=== PATIENT | male | born 1975 | race Caucasian/White ===

== ENCOUNTER 2024-05-22 08:48 | Outpatient (REF) | payer OTHER, SELFPAY ==
--- NOTE | ~2024-05-22 | XR_ITS ---
EXAMINATION: XR HIP, RIGHT CLINICAL INFORMATION: M25.551 - Pain in right hip COMPARISON: None available. TECHNIQUE: Two views of the right hip. AP pelvis. FINDINGS: Right hip: Subchondral cyst formation sclerosis of the articular surface and volume loss at the right coxofemoral joint. Loss of the coxofemoral joint space. No acute cortical disruption or malalignment. No lytic or blastic lesions. Left hip: Volume loss of the left femoral head. Sclerosis and the articular surface of the left acetabulum. Preservation of the joint spaces. No acute cortical disruption or malalignment. Bony pelvis: Sclerosis and the sacroiliac joints. No acute cortical disruption. No lytic or blastic lesions. XR/XR hip RT min 2V IMPRESSION: Moderate to severe osteoarthrosis, right coxofemoral joint. Mild to moderate osteoarthrosis, left coxofemoral joint. Electronically signed by: Jacob Denton MD 05/24/2024 07:51 AM EDT
== END 2024-05-22 08:49 | disposition home or self-care (01) ==
LOC: HO.HOSX 08:48
PROVIDERS: Visit Provider Physician Assistant
DX: M25.551 Pain in right hip (principal)
CPT/HCPCS: 73502

== ENCOUNTER 2024-05-22 14:57 | Outpatient (AMB) | payer OTHER, SELFPAY ==
--- NOTE | 2024-05-22 15:26 | A.OFFVIS_ITS ---
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 Patient was seen by his PCP who referred patient to orthopedics for increased pain of right hip. Patient reports ongoing pain for 4 years. Patient notices that his pain is on the groin area. He informs me that he is unable to tie his shoe since it causes him a lot of pain. He describes his pain as a constant ache that gets worse with activity. Hx of right knee surgery. 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 Previously, he underwent right knee surgery involving meniscus and cartilage yarsanism. His right hip now shows severe osteoarthritic changes with substantial osteophyte formation and joint space narrowing. The left hip demonstrates early-stage arthritis, further complicated by abnormal joint structure. The patient's musculoskeletal history includes multiple surgical interventions, such as right knee repair and an ankle fracture, both contributing to ongoing orthopedic challenges. The patient's long-standing use of Suboxone is for pain management, initiated after historical challenges with opioid medications for back pain. This history is compounded by his employment demands, explaining the advancing hip symptoms. 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 Significant limitations with range of motion of the right hip and internal and external rotation when compared to contralateral side. Results Reviewed Results Reviewed: X-rays of the right hip obtained in the office and reviewed by me show severe osteoarthritic changes with severe joint collapse. Assessment & Plan Assessment & Plan (1) Osteoarthritis of right hip: Code(s): M16.11 - Unilateral primary osteoarthritis, right hip Category: Medical Plan I discussed with the patient the severe osteoarthritic changes in the right hip, explaining that hip replacement offers the best resolution for marked pain relief and functional yarsanism. The surgical process was reviewed, including incision placement, removal of arthritic bone, and prosthesis insertion, which is a technically straightforward but complex procedure. We explored potential intraoperative and postoperative risks, with emphasis on a structured rehabilitation program. The patient consented to delay surgery until winter to accommodate occupational demands. I mentioned the necessity for cardiovascular evaluations through EKGs and labs preoperatively. Pain management strategy with ongoing Suboxone use was reviewed, ensuring compatibility with surgical pain protocols, and the importance of open communication regarding analgesic requirements was emphasized. He will follow up with Dr. Rivas to discuss maurizio spann. Orders: Orders XR hip RT min 2V 05/22/24 M25.551 - Pain in right hip Coding Level of Care Code New Pt Level 4 (42087) Complex EM visit Add On G2211 Diagnoses Osteoarthritis of right hip M16.11
[2024-05-22 15:29] VITALS: BMI 32.1
== END 2024-05-22 16:08 | disposition home or self-care (01) ==
LOC: HO.HOS 14:58
PROVIDERS: PCP Internal Medicine; Visit Provider Physician Assistant
DX: M16.11 Unilateral primary osteoarthritis, right hip (principal)
CPT/HCPCS: 99203

== ENCOUNTER → 2024-05-22 15:00 | Outpatient (BNV) | payer OTHER, SELFPAY | PROVIDERS: Visit Provider Radiology Diagnostic Radiology | DX: M16.11 Unilateral primary osteoarthritis, right hip (principal) | CPT/HCPCS: 73502 ==

== ENCOUNTER 2024-07-01 14:58 | Outpatient (AMB) | payer OTHER, SELFPAY ==
--- NOTE | 2024-07-01 14:59 | A.OFFVIS_ITS ---
Intake Visit Reasons: OV- Discuss RT CHARITO Intake Note: Rodriguez is a 48 year old male who presents today as he was referred by Alberto Morse to discuss Right Total Hip Arthroplasty as well as Pain management strategy with ongoing Suboxone Allergies No Known Allergies [No Known Allergies*] Allergy (Verified 05/22/24 15:28) HPI HPI OV- Discuss RT CHARITO: Details: Rodriguez is a 48 year old male who presents today as he was referred by Alberto Morse to discuss Right Total Hip Arthroplasty as well as Pain management strategy with ongoing Suboxone. He has started taken Suboxone after back surgery many years ago. He states he compliant with the Suboxone does not use illicit drugs. He does smoke a pack of cigarettes a day. He comes in today complaining of severe right hip pain. 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 He was seen by 1 of our PAs and has a diagnosis of severe right hip osteoarthritis. He denies left hip pain. He does state that he walks with a hunched over position and has done his entire life. [facility] Surgical History (Updated 05/21/24 @ 11:30 by ANI Barriga) Hx of knee surgery Social History (Updated 05/22/24 @ 15:29 by Aleida Hanna) Alcohol intake: current Alcohol intake frequency: holidays/special occasions only Patient Tobacco Use Status: Current everyday Tobacco user Cigarette Packs Per Day: 1 Current occupational status: employed Current occupation: [employer] Physical Exam Extrem Other: Antalgic gait with right-sided Trendelenburg and a hunched over gait. He has minimal rotation to possible in his right hip with severe pain on internal rotation. His left hip is notable for full motion that is not restricted and there is no pain. Results Reviewed Results Reviewed: I personally reviewed relevant radiographs. There is severe right hip osteoarthritis with fragmentation of the femoral head on the right. On the left there is a deformed femoral head likely result from prior SCFE. 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 He can not function in his current state. He has pain all the time and limps everywhere. He thinks his quality of his life is severely compromised and he would definitely benefit from a right hip replacement. He is a heavy smoker and we need to get him to stop smoking prior to arthroplasty. I explained this to him. I also explained the findings in his left hip. At this point there is a leg length discrepancy which will persist after his right hip replacement. I discussed this with him. I also discussed the risks of infection, fracture, dislocation, aseptic loosening, need for further surgery as well as possible medical complications associated with surgery including but limited to the risk of blood clots, pulmonary embolism and wound healing complications. He expressed understanding. We will proceed forward with planning for arthroplasty and smoking cessation. Coding Level of Care Code Est Pt Level 4 (79078) Diagnoses Osteoarthritis of right hip M16.11
== END 2024-07-01 15:26 | disposition home or self-care (01) ==
LOC: HO.HOS 14:58
PROVIDERS: PCP Internal Medicine; Visit Provider Orthopaedic Surgery
DX: M16.11 Unilateral primary osteoarthritis, right hip (principal)
CPT/HCPCS: 99214

== ENCOUNTER → 2024-07-01 14:58 | Outpatient (BNVA) | payer OTHER, SELFPAY | PROVIDERS: PCP Internal Medicine; Visit Provider Orthopaedic Surgery ==

== ENCOUNTER → 2024-12-24 12:09 | Outpatient (BNVA) | payer OTHER, SELFPAY | PROVIDERS: PCP Internal Medicine | DX: Z01.818 Encounter for other preprocedural examination (principal) ==